=== PATIENT | male | born 1965 | race Caucasian/White ===

== ENCOUNTER 2020-08-30 10:16 | Emergency (ER) | payer MEDICAID ==
[~2020-08-30] VITALS: Ht 180.3 cm; Wt 81.6 kg
[2020-08-30 10:21] VITALS: Ht 180.3 cm; Wt 81.6 kg
[2020-08-30 11:45] LABS: CALCIUM 8.4 mg/dL (8.5-10.1); CARBON DIOXIDE 29.1 mmol/L (21-32); CHLORIDE SERUM 96 mmol/L (98-107); CREATININE SERUM 0.9 mg/dL (0.7-1.3); GFR1 > 60 mL/min; GLUCOSE SERUM 96 mg/dL (74-106); POTASSIUM SERUM 3.6 mmol/L (3.5-5.1); SODIUM SERUM 130 mmol/L (136-145)
[2020-08-30 11:50] LABS: ALBUMIN 3.8 g/dL (3.4-5.0); ALKALINE PHOSPHATASE 84 U/L (46-116); ALT/SGPT 21 U/L (16-63); AST/SGOT 18 U/L (15-37); BILIRUBIN TOTAL 0.4 mg/dL (0.20-1.00); TOTAL PROTEIN, SERUM 7.6 g/dL (6.4-8.2)
[2020-08-30 11:54] LABS: PLATELET COUNT 314 x10^3mcL (130-400)
[2020-08-30 11:56] LABS: BASOPHIL % 0 % (0-2); RED CELL DISTRIBUTION WIDTH 28.9 % (11.5-14.5)
[2020-08-30 12:41] LABS: microscopic required? NO
[2020-08-30 13:08] LABS: urine erythrocyte NEGATIVE (NEGATIVE)
[2020-08-30 13:24] VITALS: BP 134/78
[2020-08-30 13:41] LABS: AMPHETAMINE QUAL UR POSITIVE (See below)
== END 2020-08-30 14:28 | disposition home or self-care (01) ==
LOC: ED 10:16
PROVIDERS: Emergency Medicine
DX: F22 Delusional disorders (principal); F15.10 Other stimulant abuse, uncomplicated; F41.9 Anxiety disorder, unspecified; F17.201 Nicotine dependence, unspecified, in remission
CPT/HCPCS: 99406